=== PATIENT | male | born 1995 | race Caucasian/White ===

== ENCOUNTER 2018-08-15 21:51 | Emergency (ER) | payer OTHER ==
[~2018-08-15] VITALS: Ht 162.6 cm; Wt 65.9 kg
[2018-08-15 22:28] VITALS: Ht 162.6 cm; Wt 65.9 kg
[2018-08-15 23:45] VITALS: BP 122/76; PULSE 91; RESP 18
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
== END 2018-08-15 23:47 | disposition home or self-care (01) ==
LOC: E/R 21:51
DX: F10.920 Alcohol use, unspecified with intoxication, uncomplicated (principal); R40.2142 Coma scale, eyes open, spontaneous, at arrival to emergency department; R40.2362 Coma scale, best motor response, obeys commands, at arrival to emergency department; R40.2252 Coma scale, best verbal response, oriented, at arrival to emergency department; S06.9X9A Unspecified intracranial injury with loss of consciousness of unspecified duration, initial encounter; R51 Headache; Y09 Assault by unspecified means
CPT/HCPCS: 70450